=== PATIENT | female | born 1930 | race Caucasian/White ===

== ENCOUNTER 2018-07-05 21:15 | Emergency (ER) | payer MEDICARE, BC ==
[~2018-07-05] VITALS: Ht 162.6 cm; Wt 63.5 kg
[2018-07-05 21:31] VITALS: BP 149/82
--- NOTE | 2018-07-05 21:35 | NUR ---
PT C/O TOP HEAD LACERATION S/P STUMBLED & LAMP FELL ON TOP OF HEAD X 1HR AGO. PT AOX4. RESP EVEN AND UNLABORED. NAD NOTED. NO LOC, NO GUZMAN, NO BLURRED VISION. FAMILY AT BEDSIDE. WILL CONTINUE TO MONITOR.
[2018-07-05] MEDS ORDERED: SODIUM BICARBONATE 5 ML VIAL ONE (22:43)
[2018-07-05] MEDS ORDERED: LIDOCAINE 1%-EPI 1:100,000 20 ML VIAL ONE (22:43)
[2018-07-05] MEDS ORDERED: CEPHALEXIN MONOHYDRATE 500 MG CAPSULE PO ONE ×2 (22:57→23:00)
--- NOTE | 2018-07-05 23:06 | NUR ---
Patient discharged to home in stable condition. Written and verbal after care instructions given. Patient verbalizes understanding of instruction. PT AMBULATORY WITH STEADY GAIT ACCOMPANIED BY FAMILY.
== END 2018-07-05 23:11 | disposition home or self-care (01) ==
LOC: ER 21:22
DX: S01.01XA Laceration without foreign body of scalp, initial encounter (principal); R51 Headache; Z88.0 Allergy status to penicillin; W18.49XA Other slipping, tripping and stumbling without falling, initial encounter; Y93.89 Activity, other specified; Y92.89 Other specified places as the place of occurrence of the external cause; Y99.8 Other external cause status
CPT/HCPCS: 70450-TC; J3490

== ENCOUNTER 2018-12-04 17:09 | Emergency (ER) | payer BC, MEDICARE ==
[~2018-12-04] VITALS: Ht 162.6 cm; Wt 59.0 kg
[2018-12-04 17:33] VITALS: BP 158/87
== END 2018-12-04 18:43 | disposition home or self-care (01) ==
LOC: ER 17:09
DX: S20.01XA Contusion of right breast, initial encounter (principal); Z48.01 Encounter for change or removal of surgical wound dressing; Z88.0 Allergy status to penicillin; X58.XXXA Exposure to other specified factors, initial encounter; Y93.89 Activity, other specified; Y92.89 Other specified places as the place of occurrence of the external cause; Y99.8 Other external cause status

== ENCOUNTER 2018-12-27 15:35 | Inpatient (IN) | payer MEDICARE, BC ==
[~2018-12-27] VITALS: Ht 161.3 cm; Wt 58.5 kg
--- NOTE | 2018-12-27 15:38 | NUR ---
CAME IN FOR N/V AFTER BREAKFAST THIS MORNING, DENIES ABDOMINAL PAIN AND DIARRHEA. TO ER BED 11, HOOKED TO MONITOR, CHANGED TO GOWN, PROVIDED W WARM BLANKET, DR DAVID AT BEDSIDE
--- NOTE | 2018-12-27 15:52 | NUR ---
Doni tabor in EDM - 12/27/18 at 1859 by JUAN CAME IN FOR N/V AFTER BREAKFAST THIS MORNING, DENIES ABDOMINAL PAIN AND DIARRHEA. TO ER BED 11, HOOKED TO MONITOR, CHANGED TO GOWN, PROVIDED W WARM BLANKET, AWAITING MD MANNING
[2018-12-27] MEDS ORDERED: ONDANSETRON HCL/PF 4 MG/2 ML VIAL ONE (15:59)
[2018-12-27] MEDS ORDERED: IV NS 0.9% 500 ML BAG IV ONE (16:00)
[2018-12-27] MEDS ORDERED: ONDANSETRON HCL/PF 4 MG/2 ML VIAL IVP ONE (16:00)
[2018-12-27 16:04] LABS: BASOPHILS # (AUTO) 0.2 /CMM (0.0-0.2); BASOPHILS % (AUTO) 1.5 % (0.0-2.0); EOSINOPHILS % (AUTO) 1.3 % (0.0-6.0); HEMATOCRIT 44 % (33-45); HEMOGLOBIN 14.6 g/dL (11.5-14.8); LYMPHOCYTES # (AUTO) 1.3 /CMM (0.8-4.8); LYMPHOCYTES % (AUTO) 11.7 % (20.0-44.0); MEAN CORPUSCULAR HGB CONC 33 g/dl (31.0-36.0); MEAN CORPUSCULAR VOLUME 106 fL (82-100); MONOCYTES # (AUTO) 0.6 /CMM (0.1-1.30); MONOCYTES % (AUTO) 5.4 % (2.0-12.0); NEUTROPHILS # (AUTO) 9.2 /CMM (1.8-8.9); NEUTROPHILS % (AUTO) 80.1 % (43.0-81.0); PLATELET COUNT (AUTO) 209 /CMM (150-450); RED BLOOD CELL COUNT(AUTO) 4.13 MIL/uL (4.0-5.2); WHITE BLOOD COUNT (AUTO) 11.5 K/uL (4.3-11.0)
[2018-12-27 16:10] LABS: CALCIUM, SERUM 9.2 mg/dL (8.5-10.1); CARBON DIOXIDE 29 mmol/L (21-32); CHLORIDE 102 mmol/L (98-107); CREATININE 0.7 mg/dL (0.6-1.3); GLUCOSE 147 mg/dL (74-106); POTASSIUM 4.7 mmol/L (3.5-5.1); SODIUM SERUM 141 mmol/L (136-145); UREA NITROGEN, BLOOD 14 mg/dL (7-18)
[2018-12-27 16:17] LABS: ALANINE AMINOTRANSFERASE 33 U/L (12-78); ALBUMIN 3.7 g/dL (3.4-5.0); ALKALINE PHOSPHATASE 82 U/L (46-116); ASPARTATE AMINOTRANSFERASE 33 U/L (15-37); BILIRUBIN,DIRECT 0.2 mg/dL (0.0-0.2); BILIRUBIN,TOTAL 0.6 mg/dL (0.2-1.0); LIPASE 115 U/L (73-393); TOTAL PROTEIN, SERUM 7.2 g/dL (6.4-8.2)
[2018-12-27] MEDS ORDERED: ASPIRIN 81 MG TAB.CHEW ONE (17:00)
[2018-12-27] MEDS ORDERED: ASPIRIN 81 MG TAB.CHEW PO ONE (17:00)
[2018-12-27] MEDS ORDERED: IBAN150T16 PO (17:05)
[2018-12-27] MEDS ORDERED: CLON0.5T12 PO (17:05)
[2018-12-27] MEDS ORDERED: FESO4TAB PO (17:05)
[2018-12-27] MEDS ORDERED: PRIM50TA27 PO (17:05)
[2018-12-27] MEDS ORDERED: OMEP20CA11 PO (17:05)
[2018-12-27] MEDS ORDERED: EZET10TA32 PO (17:05)
[2018-12-27] MEDS ORDERED: CAND16TA13 PO (17:05)
[2018-12-27] MEDS ORDERED: MONT10TA22 PO (17:05)
[2018-12-27] MEDS ORDERED: PROP20TA19 PO (17:05)
[2018-12-27] MEDS ORDERED: CHOL4PAC4 PO (17:05)
[2018-12-27] MEDS ORDERED: ATOR20TA PO (17:05)
--- NOTE | 2018-12-27 17:21 | NUR ---
CALLED VP OF MARKETING COMPUTER SPECIALIST, DR. BERNSTEIN, TRANSFERRED CALL TO
--- NOTE | 2018-12-27 17:25 | NUR ---
EVELYN PAGED, MOHINI MARSHALL RN HOUSE SUPERVISOR
[2018-12-27] MEDS ORDERED: ENOXAPARIN SODIUM 60 MG/0.6 ML DISP.SYRIN SQ ONE ×2 (17:30→17:40)
[2018-12-27] MEDS ORDERED: LEVOFLOXACIN 750 MG /D5W 150ML PIGGYBACK IV ONE (17:30)
--- NOTE | 2018-12-27 17:46 | NUR ---
CALLED NURSING SUP. FOR TELE BED
--- NOTE | 2018-12-27 17:59 | NUR ---
TELE 308-2 FOR NSTEMI, MOHINI MARSHALL ADMITTING
[2018-12-27] MEDS ORDERED: LEVOFLOXACIN 750 MG /D5W 150ML 750 MG in PREMIX 1 EA IV ONE (18:00)
--- NOTE | 2018-12-27 18:04 | NUR ---
DUPLICATE ORDER OF LEVAQUIN 750MG, CANCELLED ORDER
--- NOTE | 2018-12-27 18:15 | NUR ---
REPORT GIVEN TO CLOVER CHRISTY OF TELE UNIT
--- NOTE | 2018-12-27 19:19 | NUR ---
REPORT GIVEN TO ALEKSANDAR CHRISTY FOR TERESA
--- NOTE | 2018-12-27 20:20 | NUR ---
PT WAS TRANSFERRED TO 108-1 IN STABLE CONMDITION UNDER ACLS PROTOCOL
--- NOTE | 2018-12-27 20:20 | NUR ---
RN ADMITTING NOTES RECEIVED REPORT FROM DAYSHIFT WESTLEY GALO. Pt WAS STILL IN ER DURING CHANGE OF SHIFT REPORT. Pt ARRIVED TO THE FLOOR VIA GURNEY. WAS SAFELY TRANSFERRED TO BED. Pt IS A/OX3, VERBAL, ABLE TO MAKE NEEDS KNOWN, SOME FORGETFULNESS NOTED. IV ACCESS ON RFA #20G, SL. ON 5L 02 VIA NC, SAT @ 94%. VS STABLE. ON TELE MONITOR, SLIGHTLY TACHY AT 103. SAFETY MEASURES IN PLACE. BED LOW, LOCKED, HOB ELEVATED, SIDE RAILS UP, CALL LIGHT AND BEDSIDE TABLE WITHIN REACH. WILL CONTINUE TO MONITOR Pt's CONDITION AND SAFETY THROUGHOUT THE NIGHT.
[2018-12-27 20:30] VITALS: BP 154/84
[2018-12-27] MEDS ORDERED: BUMETANIDE INJ 0.25 MG/ML VIAL IV ONE (20:30)
[2018-12-27] MEDS ORDERED: Z GUARD REMEDY 2 OZ OINT TP PRN (20:30)
[2018-12-27] MEDS ORDERED: ACETAMINOPHEN 325 MG TABLET PO PRN (20:30)
[2018-12-27] MEDS ORDERED: ONDANSETRON HCL/PF 4 MG/2 ML VIAL IVP PRN (20:30)
[2018-12-27] MEDS ORDERED: ENOXAPARIN SODIUM 40 MG/0.4 ML DISP.SYRIN SQ SCH (21:00)
[2018-12-27] MEDS: PROPRANOLOL HCL 10 MG TABLET PO SCH (22:38)
[2018-12-27] MEDS: PRIMIDONE 50 MG TABLET PO SCH (22:39)
[2018-12-27] MEDS: ATORVASTATIN 10 MG TABLET PO SCH (22:39)
--- NOTE | 2018-12-27 23:55 | NUR ---
RN NOTES SPOKE WITH [employer] ASSOCIATE HOSPITALIST DR FIELD ON THE PHONE. INFORMED HIM OF Pt's ELEVATED TROP LEVEL OF 1.874. PER 's ORDER SAID TO DC SCHEDULED LOVENOX 40MG AND CHANGE IT TO LOVENOX 55MG SQ Q12H STARTING TOMORROW MORNING. WILL CARRY OUT ORDER.
[2018-12-28] VITALS: BP 141/86
--- NOTE | 2018-12-28 03:09 | NUR ---
RN NOTES INFORMED DR FIELD OF Pt's REPEAT TROPONIN LEVEL OF 4.592. PER DR FIELD CONTINUE TO MONITOR, ADD REPEAT TROP FOR LABS IN AM. WILL CARRY OUT ORDER. Pt IS ALERT & RESPONSIVE. Pt IS ASYMPTOMATIC. NO C/O CP OR RADIATING PAIN ELSE WHERE. Pt DENIES NAUSEA AT THIS TIME. WILL CONTINUE TO MONITOR Pt's CONDITION.
[2018-12-28 04:00] VITALS: BP 126/69
[2018-12-28] MEDS: PROPRANOLOL HCL 10 MG TABLET PO SCH (05:48)
[2018-12-28 06:17] LABS: BASOPHILS # (AUTO) 0.1 /CMM (0.0-0.2); BASOPHILS % (AUTO) 0.8 % (0.0-2.0); HEMATOCRIT 40 % (33-45); HEMOGLOBIN 13.4 g/dL (11.5-14.8); LYMPHOCYTES # (AUTO) 2.3 /CMM (0.8-4.8); LYMPHOCYTES % (AUTO) 17.3 % (20.0-44.0); MEAN CORPUSCULAR HGB CONC 34 g/dl (31.0-36.0); MEAN CORPUSCULAR VOLUME 104 fL (82-100); MONOCYTES # (AUTO) 1.3 /CMM (0.1-1.30); MONOCYTES % (AUTO) 9.8 % (2.0-12.0); NEUTROPHILS # (AUTO) 9.6 /CMM (1.8-8.9); NEUTROPHILS % (AUTO) 72.1 % (43.0-81.0); PLATELET COUNT (AUTO) 175 /CMM (150-450); RED BLOOD CELL COUNT(AUTO) 3.78 MIL/uL (4.0-5.2); WHITE BLOOD COUNT (AUTO) 13.4 K/uL (4.3-11.0)
[2018-12-28 06:34] LABS: ALANINE AMINOTRANSFERASE 26 U/L (12-78); ALKALINE PHOSPHATASE 63 U/L (46-116); ASPARTATE AMINOTRANSFERASE 39 U/L (15-37); BILIRUBIN,TOTAL 0.6 mg/dL (0.2-1.0); CALCIUM, SERUM 8.8 mg/dL (8.5-10.1); CARBON DIOXIDE 32 mmol/L (21-32); CHLORIDE 101 mmol/L (98-107); CREATININE 0.9 mg/dL (0.6-1.3); GLUCOSE 126 mg/dL (74-106); PHOSPHORUS 3.6 mg/dL (2.5-4.9); POTASSIUM 4.3 mmol/L (3.5-5.1); SODIUM SERUM 143 mmol/L (136-145); TOTAL PROTEIN, SERUM 6.3 g/dL (6.4-8.2); UREA NITROGEN, BLOOD 11 mg/dL (7-18)
[2018-12-28 06:40] LABS: CHOLESTEROL 184 mg/dL (<200); HDL CHOLESTEROL 101 mg/dL (40-60); LDL 75 mg/dL (0-99); THYROID STIMULATING HORMONE 2.571 uIU/mL (0.358-3.74); TRIGLYCERIDES 59 mg/dL (30-150)
[2018-12-28 06:50] LABS: MAGNESIUM 1.1 mg/dL (1.8-2.4)
--- NOTE | 2018-12-28 07:05 | NUR ---
RN CLOSING NOTES NO SIGNIFICANT CHANGES IN Pt's CONDITION. NO S/S OF ACUTE DISTRESS OR SEVERE SOB NOTED DURING THE NIGHT. [facility] [place] BY LAB 1.1, WILL ENDORSE TO DAYSHIFT RN TO F/U WITH . ALL NEEDS MET AND ATTENDED TO. SAFETY MEASURES IN PLACE. TELE READING SR 68.
[2018-12-28 07:19] LABS: IRON, SERUM 15 ug/dl (50-175); TOTAL IRON BINDING CAPACITY 162 ug/dl (250-450)
[2018-12-28] MEDS ORDERED: PANTOPRAZOLE 40 MG TABLET.DR PO SCH (07:30)
--- NOTE | 2018-12-28 07:38 | NUR ---
TELE/RN OPENING NOTE PATIENT IN BED IN STABLE CONDITION. A/O X 2-3 WITH EPISODES OF FORGETFULNESS. NO SIGNS OF ACUTE DISTRESS. NO COMPLAIN OF PAIN OR DISCOMFORT. ON TELE MONITOR NOTED WITH SR WITH RATE OF 61. ALL NEEDS ATTENDED TO. CALL LIGHT WITHIN REACH. WILL CONTINUE TO MONITOR TO ENSURE SAFETY.
[2018-12-28 08:00] VITALS: BP 118/67
[2018-12-28] MEDS: MONTELUKAST SODIUM (10MG) 10 MG TABLET PO SCH (08:15)
[2018-12-28] MEDS: EZETIMIBE 10 MG TABLET PO SCH (08:15)
[2018-12-28] MEDS: PRIMIDONE 50 MG TABLET PO SCH ×4 (08:16→22:02)
[2018-12-28] MEDS: THIAMINE HCL 100 MG TABLET PO SCH (08:16)
[2018-12-28] MEDS: VALSARTAN 80 MG TABLET PO SCH (08:16)
[2018-12-28] MEDS: PANTOPRAZOLE 40 MG TABLET.DR PO SCH (08:16)
[2018-12-28] MEDS: CHOLESTYRAMINE/ASPARTAME 4 G/PKT PACKET PO SCH (08:16)
--- NOTE | 2018-12-28 08:45 | NUR ---
MS/RN SEEN AND EXAMINED BY DR MOHINI MARSHALL WITH ORDERS TO DC PREVIOUS KLONOPIN AND START KLONOPIN 1MG PO BID. ALSO MADE AWARE REGARDING PATIENT TROP NOTED ELEVATED. PER DR MOHINI MARSHALL HE TOLD DR KENNEY TO SEE THE PATIENT. PATIENT AWARE.
[2018-12-28] MEDS ORDERED: ENOXAPARIN SODIUM 60 MG/0.6 ML DISP.SYRIN SQ SCH ×2 (09:00→21:00)
[2018-12-28] MEDS ORDERED: clonazePAM 0.5 MG TABLET PO SCH (09:00)
[2018-12-28] MEDS: Magnesium 1GM/D5W 100ML PREMIX 100 ML IV SCH ×4 (09:13→13:06)
--- NOTE | 2018-12-28 09:47 | NUR ---
TELE/RN RECEIVED CALL FROM LAB AND RUBBER WORKER NOTIFIED PATIENT TROP NOTED CRITICAL HIGH OF 10.99. SPOKE WITH DR KENNEY AND MADE AWARE PER DR KENNEY, CONTINUE LOVENOX BID AND BETA BLOCKERS AT THIS TIME. PATIENT AWARE.
[2018-12-28] MEDS ORDERED: IV NS 0.9% 250 ML IV ONE (09:55)
[2018-12-28] MEDS ORDERED: IOHEXOL-350 100 ML VIAL IV ONE (09:55)
[2018-12-28] MEDS ORDERED: METOPROLOL TARTRATE INJ 5 MG/5 ML AMPUL ONE (10:05)
[2018-12-28] MEDS ORDERED: NITROGLYCERIN 0.4 MG/TAB BOTTLE SL ONE (10:30)
[2018-12-28] MEDS ORDERED: IV NS 0.9% 500 ML IV ONE (10:30)
[2018-12-28] MEDS ORDERED: METOPROLOL TARTRATE INJ 5 MG/5 ML AMPUL IVP ONE (10:30)
--- NOTE | 2018-12-28 10:31 | NUR ---
TELE/RN METOPROLOL, NITROGLYCERIN AND 0.9%NS 500ML IV BOLUS NON ADMIN SECONDARY TO BE GIVEN IN RADIOLOGY SINCE PATIENT IS IN CT SCAN DEPT FOR CT ANGIO OF HEART.
[2018-12-28] MEDS: METOPROLOL TARTRATE 50 MG TABLET PO SCH ×2 (12:00→17:06)
[2018-12-28 16:00] VITALS: BP 103/67
[2018-12-28] MEDS: clonazePAM 1 MG TABLET PO SCH (17:05)
--- NOTE | 2018-12-28 18:13 | NUR ---
TELE/RN CLOSING NOTE PATIENT IN BED IN STABLE CONDITION. A/O X 3, WITH EPISODES OF FORGETFULNESS. NO SIGNS OF ACUTE DISTRESS. NO COMPLAIN OF PAIN OR DISCOMFORT. ON TELE MONITOR NOTED WITH SINUS RHYTHM IN 64. ALL NEEDS ATTENDED TO. CALL LIGHT WITHIN REACH. WILL ENDORSE TO NEXT SHIFT FOR CONTINUITY OF CARE.
--- NOTE | 2018-12-28 19:50 | NUR ---
RN OPENING NOTES RECEIVED REPORT FROM JOSUE VICKERS RN. FOUND Pt AWAKE, RESTING IN BED. NO S/S OF ACUTE DISTRESS OR SEVERE SOB NOTED. RESPIRATIONS EVEN AND UNLABORED AT THIS TIME. NO C/O SEVERE PAIN AT THIS TIME. Pt IS A/OX2-3, VERBAL, ABLE TO MAKE NEEDS KNOWN, FORGETFUL AT TIMES. ON TELE MONITOR: SR 60/SB 59. IV ACCESS ON RAC #18G, SL & RFA #20G,SL. SAFETY MEASURES IN PLACE. BED LOW, LOCKED, HOB ELEVATED, SIDE RAILS UP, CALL LIGHT AND BEDSIDE TABLE WITHIN REACH. WILL CONTINUE TO MONITOR Pt's CONDITION AND SAFETY THROUGHOUT THE NIGHT.
[2018-12-28 20:00] VITALS: BP 113/57
[2018-12-28] MEDS: ATORVASTATIN 10 MG TABLET PO SCH (22:02)
[2018-12-29] VITALS: BP 132/66
[2018-12-29] MEDS: METOPROLOL TARTRATE 50 MG TABLET PO SCH ×5 (01:02→23:05)
[2018-12-29 04:00] VITALS: BP 119/64
[2018-12-29 06:26] LABS: BASOPHILS % (AUTO) 0.7 % (0.0-2.0); EOSINOPHILS % (AUTO) 3.3 % (0.0-6.0); HEMATOCRIT 38 % (33-45); HEMOGLOBIN 12.9 g/dL (11.5-14.8); LYMPHOCYTES % (AUTO) 31.3 % (20.0-44.0); MEAN CORPUSCULAR HGB CONC 34 g/dl (31.0-36.0); MEAN CORPUSCULAR VOLUME 105 fL (82-100); MONOCYTES # (AUTO) 0.9 /CMM (0.1-1.30); MONOCYTES % (AUTO) 13.5 % (2.0-12.0); NEUTROPHILS # (AUTO) 3.2 /CMM (1.8-8.9); NEUTROPHILS % (AUTO) 51.2 % (43.0-81.0); PLATELET COUNT (AUTO) 155 /CMM (150-450); WHITE BLOOD COUNT (AUTO) 6.3 K/uL (4.3-11.0)
--- NOTE | 2018-12-29 06:45 | NUR ---
RN CLOSING NOTES NO SIGNIFICANT CHANGES IN Pt's CONDITION. NO S/S OF ACUTE DISTRESS OR SEVERE SOB NOTED DURING THE NIGHT. Pt IS RESTING COMFORTABLY IN BED. RESPIRATIONS EVEN AND UNLABORED. ALL NEEDS MET AND ATTENDED TO. SAFETY MEASURES IN PLACE. TELE READING SR 60/SB 55 WHEN SLEEPING. WILL ENDORSE TO DAYSHIFT RN FOR Pt's TERESA.
[2018-12-29 06:53] LABS: ALANINE AMINOTRANSFERASE 22 U/L (12-78); ALBUMIN 2.7 g/dL (3.4-5.0); ALKALINE PHOSPHATASE 55 U/L (46-116); ASPARTATE AMINOTRANSFERASE 41 U/L (15-37); BILIRUBIN,TOTAL 0.5 mg/dL (0.2-1.0); CALCIUM, SERUM 8.6 mg/dL (8.5-10.1); CARBON DIOXIDE 32 mmol/L (21-32); CHLORIDE 100 mmol/L (98-107); CREATININE 0.8 mg/dL (0.6-1.3); GLUCOSE 103 mg/dL (74-106); MAGNESIUM 2.1 mg/dL (1.8-2.4); PHOSPHORUS 2.9 mg/dL (2.5-4.9); POTASSIUM 3.1 mmol/L (3.5-5.1); SODIUM SERUM 139 mmol/L (136-145); TOTAL PROTEIN, SERUM 5.9 g/dL (6.4-8.2); UREA NITROGEN, BLOOD 10 mg/dL (7-18)
--- NOTE | 2018-12-29 07:40 | NUR ---
RN OPENING NOTES PT WAS RECEIVED IN BED AT LOWEST AND LOCKED POSITION WITH SIDE RAILS UP X2, A/O X2-3 WITH PERIODS OF FORGETFULNESS, PER AERIAL HURRICANE HUNTER RN PT WAS NOTED TO HAVE TREMORS BUT NONE WERE NOTED AT THIS TIME, CURRENTLY ON 2L VIA NC BREATHING EVEN AND UNLABORED WITH NO CURRENT COMPLAINTS OF ANY PAIN OR DISTRESS, IV IS PATENT AND INTACT, TROPONIN THIS MORNING NOTED TO BE 5.904 TRENDING DOWN, SAFETY PRECAUTIONS IN PLACE, CALL LIGHT WITHIN REACH, WILL MONITOR PT ACCORDINGLY
[2018-12-29 08:00] VITALS: BP 111/64
[2018-12-29] MEDS: THIAMINE HCL 100 MG TABLET PO SCH (08:46)
[2018-12-29] MEDS: PRIMIDONE 50 MG TABLET PO SCH ×4 (08:46→22:43)
[2018-12-29] MEDS: EZETIMIBE 10 MG TABLET PO SCH (08:47)
[2018-12-29] MEDS: POTASSIUM CHLORIDE 20 MEQ TAB.PRT.SR PO SCH ×3 (08:47→10:49)
[2018-12-29] MEDS: clonazePAM 1 MG TABLET PO SCH ×2 (08:47→16:03)
[2018-12-29] MEDS: PANTOPRAZOLE 40 MG TABLET.DR PO SCH (08:47)
[2018-12-29] MEDS: MONTELUKAST SODIUM (10MG) 10 MG TABLET PO SCH (08:48)
[2018-12-29] MEDS: VALSARTAN 80 MG TABLET PO SCH (08:48)
[2018-12-29] MEDS: CHOLESTYRAMINE/ASPARTAME 4 G/PKT PACKET PO SCH (08:49)
[2018-12-29 16:00] VITALS: BP 105/65
--- NOTE | 2018-12-29 18:46 | NUR ---
RN CLOSING NOTES PT IN BED AT LOWEST AND LOCKED POSITION WITH SIDE RAILS UP X2, A/O X2-3 BREATHING EVEN AND UNLABORED ON RA WITH NO CURRENT COMPLAINTS OF ANY PAIN OR DISTRESS, IV IS PATENT AND INTACT, SAFETY PRECAUTIONS IN PLACE, CALL LIGHT WITHIN REACH, ALL NEEDS ATTENDED TO, WILL ENDORSE TO ENTERPRISE SYSTEMS ADMINISTRATOR RN FOR TERESA.
--- NOTE | 2018-12-29 19:40 | NUR ---
RN OPENING NOTES RECEIVED REPORT FROM DAYSWAFT RNOZZY. FOUND Pt AWAKE, RESTING IN BED. NO S/S OF ACUTE DISTRESS OR SOB NOTED. RESPIRATIONS EVEN AND UNLABORED. NO C/O CHEST PAIN AT THIS TIME. Pt IS A/OX2-3, VERBAL, ABLE TO MAKE NEEDS KNOWN, FORGETFUL AT TIMES. IV ACCESS ON RAC #18G, SL. SAFETY MEASURES IN PLACE. BED LOW, LOCKED, HOB ELEVATED, SIDE RAILS UP, CALL LIGHT AND BEDSIDE TABLE WITHIN REACH. WILL CONTINUE TO MONITOR Pt's CONDITION AND SAFETY THROUGHOUT THE NIGHT.
[2018-12-29 20:00] VITALS: BP 107/61
[2018-12-29] MEDS: ATORVASTATIN 10 MG TABLET PO SCH (22:43)
[2018-12-30 06:00] VITALS: BP 113/63
[2018-12-30] MEDS: METOPROLOL TARTRATE 50 MG TABLET PO SCH ×2 (06:16→11:18)
--- NOTE | 2018-12-30 06:55 | NUR ---
RN CLOSING NOTES NO SIGNIFICANT CHANGES IN Pt's CONDITION. NO S/S OF ACUTE DISTRESS OR SEVERE SOB NOTED DURING THE NIGHT. ALL NEEDS MET AND ATTENDED TO. SAFETY MEASURES IN PLACE. BED ALARM ON. WILL ENDORSE TO DAYSHIFT RN FOR Pt's TERESA. Pt WISHES TO GO HOME TODAY IN THE AM.
--- NOTE | 2018-12-30 07:27 | NUR ---
RN OPENING NOTES PT WAS RECEIVED IN BED AT LOWEST AND LOCKED POSITION WITH SIDE RAILS UP X2, A/O X2-3 WITH PERIODS OF FORGETFULNESS, CURRENTLY BREATHING EVEN AND UNLABORED WITH NO CURRENT COMPLAINTS OF ANY PAIN OR DISTRESS, IV IS PATENT AND INTACT, SAFETY PRECAUTIONS IN PLACE, CALL LIGHT WITHIN REACH, WILL MONITOR PT ACCORDINGLY
[2018-12-30 08:00] VITALS: BP 118/65
[2018-12-30] MEDS: CHOLESTYRAMINE/ASPARTAME 4 G/PKT PACKET PO SCH (08:23)
[2018-12-30] MEDS: PRIMIDONE 50 MG TABLET PO SCH ×2 (08:23→12:09)
[2018-12-30] MEDS: PANTOPRAZOLE 40 MG TABLET.DR PO SCH (08:23)
[2018-12-30] MEDS: clonazePAM 1 MG TABLET PO SCH (08:23)
[2018-12-30] MEDS: THIAMINE HCL 100 MG TABLET PO SCH (08:23)
[2018-12-30] MEDS: EZETIMIBE 10 MG TABLET PO SCH (08:23)
[2018-12-30] MEDS: MONTELUKAST SODIUM (10MG) 10 MG TABLET PO SCH (08:23)
[2018-12-30] MEDS: VALSARTAN 80 MG TABLET PO SCH (08:25)
[2018-12-30] MEDS ORDERED: POTASSIUM CHLORIDE 20 MEQ TAB.PRT.SR PO ONE (08:30)
[2018-12-30 11:18] VITALS: BP 108/63
--- NOTE | 2018-12-30 13:30 | NUR ---
DISCHARGE NOTE PT WAS D/C AT THIS TIME IN MEDICALLY STABLE CONDITION BACK TO ASSISTED LIVING WITH HER PENNY. IV AND ID BAND WERE REMOVED. ALL EXITCARE, D/C PAPERWORK, AND BELONGING LIST WERE SIGNED, DISCUSSED, AND HANDED TO THE PATIENT. INFORMED TO FOLLOW UP WITH PRIMARY DOCTOR AND ELECTRICIAN SHOP WITHIN 1 WEEK. ALL OF THE PATIENT BELONGINGS WERE GATHERED AND HANDED TO THEM. PHOTOS OF SKIN WERE TAKEN AND PLACED IN THE CHART. ALL NEEDS WERE ATTENDED TO. PT WAS TAKEN DOWN BY CONOR BARRAGAN VIA WHEELCHAIR WHERE THEY LEFT IN THEIR PRIVATE CAR.
== END 2018-12-30 13:30 | DRG 280 ==
LOC: ER 15:35 → TELE 18:41 → MED 12-29 08:56
PROVIDERS: ADMIT Nurse Practitioner Acute Care; ATTEND Nurse Practitioner Acute Care
DX: I21.4 Non-ST elevation (NSTEMI) myocardial infarction (principal); I50.33 Acute on chronic diastolic (congestive) heart failure; F10.239 Alcohol dependence with withdrawal, unspecified; I11.0 Hypertensive heart disease with heart failure; E78.5 Hyperlipidemia, unspecified; D75.89 Other specified diseases of blood and blood-forming organs; E83.42 Hypomagnesemia; E87.6 Hypokalemia; D72.829 Elevated white blood cell count, unspecified; Z85.3 Personal history of malignant neoplasm of breast; D50.9 Iron deficiency anemia, unspecified; Z88.0 Allergy status to penicillin; K21.9 Gastro-esophageal reflux disease without esophagitis; I25.10 Atherosclerotic heart disease of native coronary artery without angina pectoris
CPT/HCPCS: 36415; 71045-TC; 75574; 80048-TC; 80053-TC; 80061-TC; 80076-TC; 83540-TC; 83690-TC; 83735-TC; 83880; 84100-TC; 84443-TC; 84484-TC; 85025-TC; 85730-TC; 87081-TC; 93307-TC; 94799-TC; 97110-TC; 97116-TC; 97530-TC; A4216; G0378; J1650; J1956; J2405; J3475; J3490; J7040; J7050; Q9967